=== PATIENT | male | born 1970 | race African-American/Black ===

== ENCOUNTER 2020-09-06 04:08 | Emergency (ER) | payer OTHER ==
[~2020-09-06] VITALS: Ht 170.2 cm; Wt 90.7 kg
[2020-09-06 07:53] VITALS: BP 132/82
== END 2020-09-06 09:11 | disposition home or self-care (01) ==
LOC: ER 04:08
DX: S92.521A Displaced fracture of middle phalanx of right lesser toe(s), initial encounter for closed fracture (principal); S62.310A Displaced fracture of base of second metacarpal bone, right hand, initial encounter for closed fracture; S62.312A Displaced fracture of base of third metacarpal bone, right hand, initial encounter for closed fracture; M50.90 Cervical disc disorder, unspecified, unspecified cervical region; M19.072 Primary osteoarthritis, left ankle and foot; M20.22 Hallux rigidus, left foot; R51.9 Headache, unspecified; F17.210 Nicotine dependence, cigarettes, uncomplicated; V49.59XA Passenger injured in collision with other motor vehicles in traffic accident, initial encounter; Y93.89 Activity, other specified; Y92.488 Other paved roadways as the place of occurrence of the external cause; Y99.8 Other external cause status
CPT/HCPCS: 70450; 72125; 73130; 73630